=== PATIENT | male | born 2000 | race Caucasian/White ===

== ENCOUNTER 2024-09-20 15:53 | Emergency (ER) | payer OTHER ==
[2024-09-20] MEDS: Ibuprofen 800 MG Tab PO ONE (16:37)
[2024-09-20 17:21] LABS: INFLUENZA A NAA NEGATIVE (NEGATIVE); INFLUENZA B NAA NEGATIVE (NEGATIVE); RESPIRATORY SYNCYTIAL VIR NAA NEGATIVE (NEGATIVE)
[2024-09-20 17:23] LABS: CORONAVIRUS COVID-19 NAA NEGATIVE (NEGATIVE)
== END 2024-09-20 17:45 | disposition home or self-care (01) ==
LOC: LB.ED 15:53
DX: B34.9 Viral infection, unspecified (principal); F17.210 Nicotine dependence, cigarettes, uncomplicated
CPT/HCPCS: 0241U; 99283; A9270-GY